=== PATIENT | male | born 1950 | race Caucasian/White ===

== ENCOUNTER 2017-05-19 08:35 | Day surgery (SDC) | payer MEDICARE ==
[2017-05-19 09:55] VITALS: BP 153/86; PULSE 66; RESP 16; TEMP 98.4; O2SAT 98
[2017-05-19 10:10] VITALS: BP 145/80; PULSE 73; RESP 16; O2SAT 98
[2017-05-19] MEDS ORDERED: LIDOCAINE HCL 1% PF 30 ML VIAL ONE (10:17)
--- NOTE | 2017-05-20 09:10 | RADRPT ---
EXAM DATE/TIME: 05/19/2017 08:48 [place] COMPARISON: No previous studies available for comparison. INDICATIONS : Right enlarged lymph node. MEDICAL HISTORY : Basal cell carcinoma. SURGICAL HISTORY : None. ENCOUNTER: Initial ACUITY: 1 day PAIN SCORE: 1/10 LOCATION: Right neck ORGAN: Right lymph node SPECIMENS: Three core specimen(s) submitted for pathologic evaluation. DEVICE: 18 gauge Bio Pince needle Post procedure scanning reveals no hematoma or other complication. The possibility does exist that the tissue obtained will be non-diagnostic. If the sample is non-maximus gnostic a repeat biopsy or surgical biopsy may need to be performed. TECHNIQUE: 1. Ultrasound guidance for needle biopsy. 2. Needle biopsy. The risks, benefits, and alternatives to ultrasound guided needle biopsy were explained to the patien t in detail including the risk of bleeding and infection. Written and verbal informed consent was ob tained. With the patient on the ultrasound table, images were obtained. Overlying skin was prepped and drape d in the usual sterile fashion and Lidocaine was utilized as a local anesthetic. Under direct ultrasound guidance 3, 18 gauge cores were obtained of the soft tissue mass sitting betw een the jugular and carotid. Touch prep was made and submitted as well. The patient tolerated the procedure well and left the ultrasound suite in stable condition. CONCLUSION: Uncomplicated ultrasound guided needle biopsy. Preliminary touch prep is lymphoid. Collin Hester MD FACR on May 20, 2017 at 9:06 Board Certified Radiologist. This report was verified electronically.
== END 2017-05-19 10:16 | disposition home or self-care (01) ==
LOC: HRAD 08:35 → HRIP 08:43 → HRAD 10:16
PROVIDERS: ATTEND Radiology Body Imaging
DX: R59.0 Localized enlarged lymph nodes (principal); Z85.72 Personal history of non-Hodgkin lymphomas
CPT/HCPCS: 38505; 76942; 88305; 88333; 88341; 88342

== ENCOUNTER 2018-10-05 05:40 | Inpatient (IN) ==
[2018-10-05] MEDS ORDERED: Metoprolol Tartrate 25 MG Tablet PO ONE (06:05)
[2018-10-05] MEDS ORDERED: Chlorhexidine Gluconate 2% 1 Pack (2 Cloths) TOPICAL ONE (06:05)
[2018-10-05] MEDS ORDERED: Heparin - SQ 10,000 UNITS/ML Vial ONE (06:36)
[2018-10-05] MEDS ORDERED: ceFAZolin 2 GM Premix Inj 2 GM/50 ML PIGGYBACK IV.SIG ONE (06:36)
[2018-10-05] MEDS ORDERED: Sodium Chlor 0.9% Inj 500 ML IV.SIG SCH (07:00)
[2018-10-05] MEDS ORDERED: HYDROmorphone PF Inj 2 MG/ML Vial ONE (07:27)
[2018-10-05] MEDS ORDERED: Sugammadex Inj 200 MG/2 ML Vial IV.PUSH ONE (07:27)
[2018-10-05] MEDS ORDERED: Sodium Chlor 0.9% Inj 20 ML, Bupivacaine Liposo PF 1.3% Inj 20 ML, Dexamethasone PF Inj... IRRIGATION ONE ×4 (07:45)
[2018-10-05] MEDS ORDERED: fentaNYL Citrate Inj 100 MCG/2 ML Ampul ONE ×3 (07:58→13:08)
[2018-10-05] MEDS ORDERED: Sod Chloride 0.9% Inj 1,000 ML IV.CONT ONE (09:15)
[2018-10-05] MEDS ORDERED: Sodium Chlor 0.9% Inj 500 ML IV.CONT ONE (09:15)
[2018-10-05] MEDS ORDERED: Phenylephrine/NS 1000 MCG/10ML Syringe IV.PUSH ONE (09:15)
[2018-10-05] MEDS ORDERED: Lidocaine PF 1% Inj 5 ML Syringe OTHER ONE (09:15)
[2018-10-05] MEDS ORDERED: Sodium Chlor 0.9% Inj 250 ML IV.CONT ONE (09:15)
[2018-10-05] MEDS ORDERED: Methylene Blue Inj 10 MG/ML Vial OTHER ONE (09:30)
[2018-10-05] MEDS ORDERED: Lidocaine 1%/Epinephrine 1:100,000 Inj 20 ML Vial I-DERMAL ONE (09:35)
--- NOTE | 2018-10-05 10:36 | P.RAD ---
Post CT Procedure Prog Note - Pre Procedure Diagnosis (1) Lung nodule < 6cm on CT - Post Procedure Diagnosis (1) Lung nodule < 6cm on CT - Procedure Information Procedure Date: 10/05/18 Supervising Radiologist: Madhu Perkins Jr, MD Anesthesia: Conscious Sedation - Plan of Activity Additional Comments: CT guided methyline blue injection adjacent to 4mm DANAY nodule. I discussed specifics with Dr Da Silva regarding location of injection relative to lesion. See PACS Report for procedural detail/treatment.
--- NOTE | 2018-10-05 11:24 | CT ---
EXAM DATE: 10/05/2018 10:48 AM EST AGE/SEX: 68 years / Male INDICATIONS: Methylene blue injection for left lung mass location for wedge resection. CLINICAL DATA: This is the patient's initial encounter. Patient reports that signs and symptoms have been present for 1 day and indicates a pain score of 0/10. MEDICAL/SURGICAL HISTORY: Gastroesophageal reflux disease. Hypertension. Left lung mass Inguinal hernia repair. COMPARISON: No prior exams available for comparison. PROCEDURE : 1) conscious sedation with continuous pulse oximetry and EKG monitoring. 2) CT guided percutaneous needle placement and methylene blue injection adjacent to a lung nodule The risks, benefits and alternatives to the procedure were explained and verbal and written consent w as obtained. Using automated exposure control and adjustment of the mA and/or kV according to patien t size, radiation dose was kept as low as reasonably achievable to obtain optimal diagnostic quality images. The site was prepped in sterile fashion. Full sterile technique was used, including cap, ma sk, sterile gloves and gown and a large sterile sheet. Hand hygiene and 2% chlorhexidine and/or beta dine/alcohol prep was utilized per protocol for cutaneous antisepsis. The skin and subcutaneous tiss ues were infiltrated with local anesthetic solution. Conscious sedation with continuous monitoring wa s performed. I reviewed the patient's prior imaging. Again seen is a 4 mm nodule within the posterior left upper lobe adjacent to the major fissure. Localization of this nodule is requested for wedge re section. Under CT guidance and utilizing a mid axillary line approach a 22-gauge spinal needle was pa ssed into the left upper lobe just anterior to the lung nodule. 0.2 mL's of methylene blue was used t o highlight the tract. The needle tract is 1 cm anterior to the nodule. The nodule is approximately 1 cm anterior to the major fissure. The nodule is therefore between the major fissure and the needle t ract. The peripheral portion of the nodule is 6 mm deep to the visceral pleura and the deepest margin of the nodule 12 mm deep to the visceral pleura along its lateral margin. I discussed these measurem ents with Dr Da Silva DICOM format image data is available electronically for review and comparison. FINDINGS: Successful methylene blue injection adjacent to a 4 mm left upper lobe pulmonary nodule. CONCLUSION: 1. Uncomplicated procedure as above. Electronically signed by: Madhu Perkins MD 10/05/2018 11:23 AM EST
[2018-10-05] MEDS ORDERED: Bisacodyl 10 MG Supp RECTAL PRN (12:33)
[2018-10-05] MEDS ORDERED: Acetaminophen 325 MG Tablet PO PRN (12:33)
--- NOTE | 2018-10-05 12:41 | P.OP ---
Date of procedure: 10/05/18 Anesthesia: GETA Surgeon: Rodney Da Silva MD Operation and Findings: PREOPERATIVE DIAGNOSIS 1. Left upper lobe Lung Mass 2. Lymphoma POSTOPERATIVE DIAGNOSIS same PROCEDURES 1. Robotic left upper lobe mass resection 2. Intercostal Nerve Block 3. Cryo Nerve Block SURGEON Rodney Da Silva MD INSPECTOR AND CLIPPER RENNY Caballero RNFA ANESTHESIA General endotracheal. PROMOTIONAL MARKETING AGENT ASHLEY Redd MD OPERATIVE TIME Please see record. COMPLICATIONS None. INDICATION FOR PROCEDURE The patient is a 68yo with left upper lobe 4 mm lung nodule. DESCRIPTION OF PROCEDURE The patient was brought to the operating suite and placed in supine position. Prior to the OR, the patient be taken to the radiology suite for CT-guided localization of the small nodule. Following satisfactory induction of general endotracheal anesthesia, the patient was placed in the right lateral decubitus position. The left chest was then prepped and draped in the usual sterile fashion. Under direct vision, camera was introduced in the 8 th ICS and insufflation was begun into the chest. Instrument arm 1 and 2 were placed. Lesion was identified and resected using the surgical stapler with wide margins. Specimen was bagged and removed from the chest and sent for histologic analysis. This was consistent with a low-grade/in situ adenocarcinoma. Given the small size of the lesion with no associated lymphadenopathy and a negative PET scan, no further resection was performed. A 28-Guyanese chest tube was placed. Intercostal nerve block was performed at the level of the incision and 3 rib spaces above and below using Exparel with Decadron solution. Cryo nerve block was performed using the AtriCure Cryo- probe at the level of the incision as well as two intercostal spaces above and below. Tissell was sprayed along the staple line and no air-leaks were identified. Wounds were closed with 2-0, 3-0, and 4-0 Monocryl. The patient tolerated the procedure well and postoperatively went to recovery in stable condition.
[2018-10-05] MEDS ORDERED: Ketorolac Inj 30 MG/ML (IVP) Vial ONE (13:25)
[2018-10-05] MEDS ORDERED: *morphine SULFATE 4 MG/ML PERIprocedure ONLY ONE ×3 (13:30→14:25)
[2018-10-05] MEDS ORDERED: Post-op Orders (for Pharmacy) OTHER STA (13:46)
[2018-10-05] MEDS: Ketorolac Inj 30 MG/ML (IVP) Vial IV.PUSH SCH ×2 (13:49→20:53)
--- NOTE | 2018-10-05 14:03 | XR ---
EXAM DATE: 10/05/2018 2:00 PM EST AGE/SEX: 68 years / Male INDICATIONS: Post op thoracotomy. CLINICAL DATA: This is the patient's initial encounter. Patient reports that signs and symptoms have been present for 1 day and indicates a pain score of 0/10. MEDICAL/SURGICAL HISTORY: None. None. COMPARISON: [facility], CHEST 2V PA&LAT, 09/29/2018. . FINDINGS: The examination demonstrates a chest tube in place on the left. There is no pneumothorax. There is a small area of pulmonary sutures at the left base. The osseous structures are intact. CONCLUSION: Left-sided chest tube in good position. No significant pneumothorax. Electronically signed by: Tavo Hester MD 10/05/2018 2:02 PM EST
[2018-10-05] MEDS ORDERED: *HYDROmorphone PF Inj 1 MG/ML Ampul PERIprocedural Use ONLY ONE (14:28)
[2018-10-05] MEDS: ceFAZolin 1 GM Premix Inj 1 GM/50 ML FROZ.PIGGY IV.SIG SCH (17:29)
[2018-10-05] MEDS: Senna/Docusate Sodium 8.6/50 MG Tablet PO SCH (20:55)
[2018-10-06] MEDS: ceFAZolin 1 GM Premix Inj 1 GM/50 ML FROZ.PIGGY IV.SIG SCH ×2 (02:05→09:37)
[2018-10-06] MEDS: Ketorolac Inj 30 MG/ML (IVP) Vial IV.PUSH SCH ×2 (02:06→08:50)
[2018-10-06] MEDS: Senna/Docusate Sodium 8.6/50 MG Tablet PO SCH ×2 (08:52→20:02)
[2018-10-06] MEDS ORDERED: Acetaminophen 325 MG Tablet PO PRN (11:00)
--- NOTE | 2018-10-06 12:48 | XR ---
EXAM DATE: 10/06/2018 12:44 PM EST AGE/SEX: 68 years / Male INDICATIONS: Post-op left lung resection. CLINICAL DATA: This is the patient's subsequent encounter. Patient reports that signs and symptoms h ave been present for 2 days and indicates a pain score of 1/10. MEDICAL/SURGICAL HISTORY: Lymphoma. Chest tube, left. [place] [facility] [place]. . FINDINGS: Large bore chest tube in place on the left without pneumothorax. Right lung is clear The heart and pulmonary vascularity are normal. The portion of the bony skeleton visualized is unremarkable. CONCLUSION: Large bore chest tube in place on the left, negative for pneumothorax. Electronically signed by: Collin Hester MD 10/06/2018 12:47 PM EST
--- NOTE | 2018-10-06 14:45 | P.PNCV ---
- Note Subjective/Hospital Course: 68/ male , initially seen by Dr Da Silva in [facility] office , with known history of lymphoma, s/p chemo and radiation in 2001, subsequent radiation in 2018. Presented with new findings of a left upper lobe basiliar nodule measuting 4mm, . He also had a PET scan at [facility] with follow up [facility] PMH: Lymphoma, lung nodule , GERD, HTN 10/05 pt electively admitted for surgery PREOPERATIVE DIAGNOSIS 1. Left upper lobe Lung Mass 2. Lymphoma POSTOPERATIVE DIAGNOSIS same PROCEDURES 1. Robotic left upper lobe mass resection 2. Intercostal Nerve Block 3. Cryo Nerve Block 10/06 on room air , pain controlled 01/02 no air leak in chest tube / drained 190cc/ 24 hrs CXR stable , no PTX eval for removal in am Objective: Vital Signs - 24 hr 10/05/18 14:45 10/05/18 15:36 10/05/18 16:00 Temperature 97.6 F Pulse Rate 80 93 H 90 Respiratory Rate 16 Blood Pressure 126/69 Pulse Oximetry 96 10/05/18 17:00 10/05/18 18:00 10/05/18 19:00 Temperature 98.9 F Pulse Rate 98 H 92 H 100 H Respiratory Rate 18 Blood Pressure 133/75 Pulse Oximetry 95 10/05/18 20:00 10/05/18 21:00 10/05/18 22:00 Temperature Pulse Rate 100 H 96 H 100 H Respiratory Rate Blood Pressure Pulse Oximetry 10/05/18 23:00 10/06/18 00:00 10/06/18 01:00 Temperature 99.1 F Pulse Rate 100 H 104 H 94 H Respiratory Rate 18 Blood Pressure 123/67 Pulse Oximetry 95 10/06/18 02:00 10/06/18 03:00 10/06/18 04:00 Temperature 98.7 F Pulse Rate 94 H 96 H 94 H Respiratory Rate 18 Blood Pressure 122/69 Pulse Oximetry 92 L 10/06/18 05:00 10/06/18 06:00 10/06/18 07:00 Temperature 98.2 F Pulse Rate 94 H 82 90 Respiratory Rate 16 Blood Pressure 130/78 Pulse Oximetry 94 L 10/06/18 08:00 10/06/18 09:00 10/06/18 10:00 Temperature Pulse Rate 92 H 86 84 Respiratory Rate Blood Pressure Pulse Oximetry 10/06/18 11:00 10/06/18 12:00 Temperature 99.1 F Pulse Rate 89 95 H Respiratory Rate 16 Blood Pressure 124/70 Pulse Oximetry 97 Telemetry: NSR - Plan (1) S/P thoracotomy Plan: pulm toileting leave chest tube in pain control GI motility meds (3) Hypertension Plan: home meds resumed
[2018-10-07] MEDS: Senna/Docusate Sodium 8.6/50 MG Tablet PO SCH (08:36)
[2018-10-07 09:05] VITALS: RESP 16; O2SAT 96
[2018-10-07 11:09] VITALS: BP 136/82; TEMP 98.2
--- NOTE | 2018-10-07 12:51 | P.DS ---
Date of admission: 10/05/18 05:40 Primary care physician: Kp Reese DO Attending physician on discharge: Hannah Waite Anticipated date of discharge: 10/07/18 Brief History from admission: 68/ male , initially seen by Dr Da Silva in office , with known history of lymphoma, s/p chemo and radiation in 2000, subsequent radiation in 2018. Presented with new findings of a left upper lobe basiliar nodule measuting 4mm, . He also had a PET scan at [facility] with follow up [facility] H: Lymphoma, lung nodule , GERD, HTN 10/05 pt electively admitted for surgery PREOPERATIVE DIAGNOSIS 1. Left upper lobe Lung Mass 2. Lymphoma POSTOPERATIVE DIAGNOSIS same PROCEDURES 1. Robotic left upper lobe mass resection 2. Intercostal Nerve Block 3. Cryo Nerve Block Patient update on day of discharge: pt doing well , on room air , pain controlled post chest tube removal stable stable for dc home discharge instructions given to pt and path pending DS: Diagnosis - Discharge Diagnosis (1) S/P thoracotomy Status: Acute (2) Lung nodule < 6cm on CT Status: Acute (3) Hypertension Status: Acute DS: Medications - Discharge Medications Prescriptions: hydrocodone-acetaminophen 1 tab PO Q4H PRN #40 tab PRN Reason: Pain Scale 3 To 5 DS: Summary Hospital Course: 68/ male , initially seen by Dr Da Silva in office , with known history of lymphoma, s/p chemo and radiation in 2000, subsequent radiation in 2017. Presented with new findings of a left upper lobe basiliar nodule measuting 4mm, . He also had a PET scan at [facility] with follow up CT [facility]: Lymphoma, lung nodule , GERD, HTN 10/05 pt electively admitted for surgery PREOPERATIVE DIAGNOSIS 1. Left upper lobe Lung Mass 2. Lymphoma POSTOPERATIVE DIAGNOSIS same PROCEDURES 1. Robotic left upper lobe mass resection 2. Intercostal Nerve Block 3. Cryo Nerve Block 10/06 on room air , pain controlled 01/02 no air leak in chest tube / drained 190cc/ 24 hrs CXR stable , no PTX eval for removal in am 10/07 chest tube removed without difficulty f/u CXR stable , will dc home with instructions - Time Spent with Patient Total time spent providing and/or coordinating discharge services: Less than 30 minutes - Quality: VTE Deep Vein Thrombosis/Pulmonary Embolism Present on Admission: No Exam Vital signs: Vital Signs 10/06/18 13:00 10/06/18 14:00 10/06/18 15:00 Temperature 98.9 F Pulse Rate 81 81 81 Respiratory Rate 17 Blood Pressure 139/76 Pulse Oximetry 98 10/06/18 16:00 10/06/18 17:00 10/06/18 17:39 Temperature Pulse Rate 85 87 82 Respiratory Rate Blood Pressure Pulse Oximetry 10/06/18 19:00 10/06/18 20:00 10/06/18 21:00 Temperature 99.7 F H Pulse Rate 82 86 90 Respiratory Rate 14 Blood Pressure 142/76 H Pulse Oximetry 96 10/06/18 22:00 10/06/18 23:00 10/07/18 00:00 Temperature 99.7 F H Pulse Rate 102 H 88 84 Respiratory Rate 16 Blood Pressure 129/60 Pulse Oximetry 95 10/07/18 01:00 10/07/18 02:00 10/07/18 03:00 Temperature 99.7 F H Pulse Rate 86 84 87 Respiratory Rate 14 Blood Pressure 124/70 Pulse Oximetry 95 10/07/18 04:00 10/07/18 05:00 10/07/18 06:00 Temperature Pulse Rate 86 80 86 Respiratory Rate Blood Pressure Pulse Oximetry 10/07/18 07:00 10/07/18 08:00 10/07/18 09:00 Temperature 98.4 F Pulse Rate 93 H 91 H 89 Respiratory Rate 16 Blood Pressure 137/83 Pulse Oximetry 96 10/07/18 10:00 10/07/18 11:00 10/07/18 12:00 Temperature 98.2 F Pulse Rate 90 84 87 Respiratory Rate 16 Blood Pressure 136/82 Pulse Oximetry 96 Intake & Output 10/06/18 10/07/18 10/07/18 18:59 06:59 18:59 Intake Total 1050 / 1050 720 / 720 Output Total 310 / 310 70 / 70 Balance 740 / 740 650 / 650 Weight 90.4 kg Intake: IV 50 / 50 Ancef 1 GM Premix Inj 1 gm In 50 / 50 50 ml @ 100 mls/hr IV.SIG Q8H RAMÍREZ Rx#:[id number] Oral 1000 / 1000 720 / 720 Output: Urine 200 / 200 Chest Tube Drainage 110 / 110 70 / 70 #1 Left 110 / 110 70 / 70 Other: # Voids 5 4 - Constitutional no acute distress - Routine HEENT Exam Head: Present: normocephalic Eye: Present: EOMI, PERRL, normal accommodation - Routine Neck Exam Present: supple, full ROM - Routine Chest/Breast/Axilla Exam Chest wall: Present: tenderness - Routine Respiratory Exam Present: CTA bilaterally - Routine Cardiovascular Exam Present: RRR, S1, S2 - Routine Abdominal Exam Present: soft, normoactive bowel sounds - Routine Extremities Exam Present: pulses intact, normal capillary refill - Routine Skin Exam Present: wounds (incisions intact tl feft posterior chest/ vaseline gauze dressing to chest tube site ) Results Procedures completed during hospitalization: 10/05/18 PREOPERATIVE DIAGNOSIS 1. Left upper lobe Lung Mass 2. Lymphoma POSTOPERATIVE DIAGNOSIS same PROCEDURES 1. Robotic left upper lobe mass resection 2. Intercostal Nerve Block 3. Cryo Nerve Block - Impressions ITS Impressions Guidance Needle Placement CT 10/05/18 00:00 CONCLUSION: 1. Uncomplicated procedure as above. Discharge Plan - Discharge Disposition Patient Disposition: 01 Discharge Home - Discharge Condition Condition: Good - Discharge Order Discharge Orders: Discharge Order (Routine); Ordered 10/07/18 Ordered By: Sabra Cook - Discharge Details Anticipated Discharge Date: 10/07/18 - Physicians Team Primary Care Provider: Kp Reese Attending Provider: Rodney Da Silva - Rxs /Orders / Referrals /Forms Prescriptions: New docusate sodium 50 mg Capsule 100 mg PO BID Qty: 30 RF: 0 hydrocodone-acetaminophen 5-325 mg Tablet 1 tab PO Q4H PRN (Reason: Pain Scale 3 To 5) Qty: 40 RF: 0 Continue aspirin [Adult Low Dose Aspirin] 81 mg Tablet,Delayed Release (Dr/Ec) 81 mg PO EVERY OTHER DAY atorvastatin 20 mg Tablet 20 mg PO DAILY esomeprazole magnesium [Nexium] 40 mg Capsule,Delayed Release(Dr/Ec) 40 mg PO DAILY losartan 50 mg Tablet 50 mg PO DAILY Referrals: Dr Simeon Ortiz MD [Other] - See Instructions ( Please call the physician's office to book the appointment to be seen within [4 weeks of discharge].) Kp Reese, DO [Primary Care Provider] - See Instructions ( Please call the physician's office to book the appointment to be seen within [2 weeks of discharge].) Sabra Cook [ADVANCE RN PRACTITIONER] - See Instructions ( Your appointment has been scheduled for [10/12/18] at [12:00 pm] If you cannot make this appointment, please call the office to reschedule ) - Discharge Instructions Patient Printed Instructions: Lung Lobectomy (DC) Additional Instructions: Incentive spirometry Q1 hr x 10, while awake, also use acapella device hourly whole Chest wall precautions: NO pushing or pulling, ( pt must use chest pillow support chest with all activities and with coughing Daily incision care: ok to shower ( 48hrs after chest tube removed) and then daily, no tub bath. Wash all incisions with liquid dial soap, clean wash cloth to each site, rinse and pat dry. Observe for any signs of infection, such as drainage which is dark yellow, tello, green or foul smelling. Immediately report to the surgeon any drainage from the chest incision, or legs, and for any abnormal drainage from the chest tube sites. Notify surgeon if any temp > 101.5 degrees F. When specialty dressing removed/ or if you do not have one, continue to shower daily as above, then rinse and pat incision dry and paint with betadine daily x 5 days. Allow steri strips to fall off if you have any. Avoid lotions, creams, salves, oils, etc. for the first month For Dr. Waite patients , please obtain PA & Lat CXR in 2 weeks, results to Dr. Waite ( prescription will be given) ( ) (Tele: [phone]) , F/U appointment: as per DC instructions: PCP in 2 weeks, CV surgeon 2 weeks, Maintenance Data Analyst 3-4 weeks For any questions regarding incisions/ dressing / meds / post op care or above Symptoms, Thursday 8am-5pm Heart & Vascular Surgery Office ( Dr. Da Silva & Dr. Waite), After Hours / Nights (5pm -8am) Weekends and Holidays Please call [facility] Cardiac [facility] Unit ([facility]) Charge Nurse
--- NOTE | 2018-10-07 12:54 | XR ---
EXAM DATE: 10/07/2018 12:33 PM EST AGE/SEX: 68 years / Male INDICATIONS: Evaluate pneumothorax. CLINICAL DATA: This is the patient's subsequent encounter. Patient reports that signs and symptoms h ave been present for 3 days and indicates a pain score of 0/10. MEDICAL/SURGICAL HISTORY: . Gastroesophageal reflux disease. Hypertension. Left lung mass. Ingu inal hernia repair. . COMPARISON: [facility] [place], CHEST 1V SINGLE AP, 10/06/2018. . FINDINGS: Single AP view the chest. The lungs are clear. Cardiomediastinal silhouette within normal limits. No evidence of pleural effusion or pneumothorax. CONCLUSION: No acute cardiopulmonary disease identified. Electronically signed by: Antoine Mckeon MD 10/07/2018 12:52 PM EST
[2018-10-07 13:07] VITALS: PULSE 77
== END 2018-10-07 13:31 | disposition home or self-care (01) ==
LOC: HSDI 05:40 → HCPC 14:35
PROVIDERS: ADMIT Thoracic Surgery (Cardiothoracic Vascular Surgery); ATTEND Thoracic Surgery (Cardiothoracic Vascular Surgery)